=== PATIENT | female | born 1975 | race Caucasian/White ===

== ENCOUNTER 2019-10-02 12:20 | Emergency (ER) | payer MEDICAID, OTHER, SELFPAY ==
--- NOTE | 2019-10-02 13:22 | NUR ---
NA X 2 AT 1322
--- NOTE | 2019-10-02 14:00 | NUR ---
NA X 3 AT 1401
--- NOTE | 2019-10-02 14:26 | NUR ---
NA X 4 AT 1402
== END 2019-10-02 14:03 | disposition left against medical advice (07) ==
LOC: ED 13:52
DX: M79.662 Pain in left lower leg (principal); Z53.21 Procedure and treatment not carried out due to patient leaving prior to being seen by health care provider